=== PATIENT | female | born 1985 | race Two or more races ===

== ENCOUNTER 2025-03-05 13:03 | Inpatient (IN) | payer OTHER ==
[~2025-03-05] VITALS: Ht 157.5 cm; Wt 69.4 kg
[2025-03-05 12:08] VITALS: BP 113/65
[2025-03-05] MEDS ORDERED: MAGNESIUM SULFATE IN WATER 0.04 GM/ML IV.SOLN IV ONE (13:37)
[2025-03-05] MEDS ORDERED: BETAMETHASONE ACETATE,SOD PHOS 30 MG/5 ML ML IM SCH (14:00)
[2025-03-05] MEDS ORDERED: MAGNESIUM SULFATE IN WATER 500 ML IV SCH (14:15)
[2025-03-05] MEDS ORDERED: RINGERS SOLUTION,LACTATED 1,000 ML IV SCH (14:15)
[2025-03-05] MEDS ORDERED: PRENATA CHEWAB1 EACH PO (14:42)
[2025-03-05] MEDS ORDERED: FOLIC ACID20 MG PO (14:43)
[2025-03-05 15:05] LABS: PH,URINE 6.5 (5.0-8.0); URINE APPEARANCE Clear; URINE BILIRRUBIN Negative (NEGATIVE); URINE BLOOD Negative; URINE COLOR Yellow; URINE GLUCOSE Negative (NEGATIVE); URINE KETONE Negative (NEGATIVE); URINE LEUKOCYTE Trace; URINE NITRATE Negative; URINE PROTEIN Negative (NEGATIVE); URINE UROBILINOGEN 0.2 E.U./dl
[2025-03-05 15:08] LABS: URINE BACTERIA 1705.9 uL (0.0-1933); URINE EPITHELIAL CELLS 19.9 uL (0.0-38.8); URINE RBC 5.8 uL (0.0-20.8); URINE WBC 31.1 uL (0.0-23.2)
[2025-03-05 15:24] VITALS: BP 108/65
[2025-03-05 15:30] LABS: BASO % 0.2 % (0.1-1.2); EOS # 0.16 (0.04-0.54); EOS % 1.5 % (0.7-7.0); HEMATOCRIT 32.7 % (34.1-44.9); HEMOGLOBIN 11.3 g/dL (11.2-15.7); LYMPH # 1.39 (1.18-3.74); MEAN CORPUSCULAR HEMOGLOBIN 28.9 pg (25.6-32.2); MONO # 0.56 (0.24-0.82); MONO % 5.2 % (4.7-12.5); NEUT # 8.55 (1.56-6.13); NEUT % 79.6 % (34.0-71.1); PLATELET COUNT 219 K/uL (163-369); RED BLOOD COUNT 3.91 M/uL (3.93-5.22); RED CELL DISTRIBUTION WIDTH 12.4 % (11.6-14.4)
[2025-03-05 15:48] LABS: ALBUMIN 2.6 gm/dL (3.4-5.0); BILIRUBIN TOTAL 0.19 mg/dL (0.3-1.2); GFR 307.27; GLOBULINA 3.5 G/DL (2.4-3.5); POTASSIUM 3.88 mEq/L (3.5-5.1); TOTAL PROTEIN 6.1 gm/dL (6.4-8.2)
[2025-03-05 15:50] LABS: CREATININE SERUM 0.25 mg/dL (0.55-1.02)
[2025-03-05 15:57] LABS: INR 0.94; PARTIAL THROMBOPLASTIN TIME 26.6 SECONDS (22.0-34.0); PROTHROMBIN TIME 10.3 SECONDS (9.0-11.5)
[2025-03-05 19:31] VITALS: BP 118/69
[2025-03-05 23:05] VITALS: BP 108/64
[2025-03-06 03:02] VITALS: BP 99/61
[2025-03-06 06:20] VITALS: BP 104/63; O2SAT 98
[2025-03-06 11:51] VITALS: BP 100/63; O2SAT 98
[2025-03-06 15:24] VITALS: BP 90/58
[2025-03-06 20:15] VITALS: BP 104/65
[2025-03-06] MEDS ORDERED: NIFEDIPINE 30 MG TAB.SA.OSM PO SCH (21:00)
[2025-03-06 23:37] VITALS: BP 95/53
[2025-03-07 03:29] VITALS: BP 99/52
[2025-03-07 06:19] VITALS: BP 93/52; O2SAT 98
[2025-03-07] MEDS ORDERED: ACETAMINOPHEN 500 MG GEL..CAP PO NR (08:15)
[2025-03-07 10:52] VITALS: BP 94/53
[2025-03-07 14:06] VITALS: BP 111/71
[2025-03-07 16:03] VITALS: BP 107/68
[2025-03-08] VITALS: BP 105/64
[2025-03-08 08:00] VITALS: BP 110/68
[2025-03-08] MEDS ORDERED: TERBUTALINE SULFATE 1 MG/ML AMPUL SUBCUTANEO STA (12:59)
[2025-03-08 16:14] VITALS: BP 120/71
[2025-03-08] MEDS ORDERED: ACETAMINOPHEN 500 MG GEL..CAP PO PRN (17:00)
[2025-03-09 00:47] VITALS: BP 96/64
[2025-03-09 08:00] VITALS: BP 104/67
[2025-03-09 16:59] VITALS: BP 100/66
[2025-03-09 23:56] VITALS: BP 102/62
[2025-03-10] MEDS ORDERED: Procardia Xl 30MG TA PO (08:39)
[2025-03-10 08:45] VITALS: BP 118/73
== END 2025-03-10 13:30 | disposition home or self-care (01) | DRG 833 ==
LOC: LDR 13:03 → OB/GYN 03-07 10:05
PROVIDERS: ADMIT Obstetrics & Gynecology; ATTEND Obstetrics & Gynecology
PROC: 4A1HXCZ Monitoring of Products of Conception, Cardiac Rate, External Approach (ICD-10-PCS; principal; 2025-03-05)
PROC: BY4FZZZ Ultrasonography of Third Trimester, Single Fetus (ICD-10-PCS; 2025-03-06)
PROC: BU4CZZZ Ultrasonography of Uterus and Ovaries (ICD-10-PCS; 2025-03-06)
DX: O47.03 False labor before 37 completed weeks of gestation, third trimester (principal); O26.843 Uterine size-date discrepancy, third trimester; O36.8130 Decreased fetal movements, third trimester, not applicable or unspecified; Z3A.28 28 weeks gestation of pregnancy

== ENCOUNTER 2025-05-10 15:38 | Outpatient (CLI) | payer OTHER ==
[~2025-05-10 15:38] MED LIST: FOLIC ACID20 MG PO; PRENATA CHEWAB1 EACH PO; Procardia Xl 30MG TA PO
== END 2025-05-10 16:57 | disposition home or self-care (01) ==
LOC: NST 15:38
PROVIDERS: ATTEND Obstetrics & Gynecology
DX: Z34.83 Encounter for supervision of other normal pregnancy, third trimester (principal)

== ENCOUNTER 2025-05-11 00:30 | Outpatient (CLI) | payer OTHER ==
[2025-05-11 00:02] VITALS: BP 125/72
[2025-05-11 05:25] VITALS: BP 129/78
== END 2025-05-11 04:44 | disposition home or self-care (01) ==
LOC: OBS/DEL 00:30
PROVIDERS: ATTEND Obstetrics & Gynecology
DX: O36.8130 Decreased fetal movements, third trimester, not applicable or unspecified (principal); Z3A.37 37 weeks gestation of pregnancy

== ENCOUNTER 2025-05-11 17:52 | Outpatient (CLI) | payer OTHER ==
[2025-05-11 17:32] VITALS: BP 117/70
[2025-05-11 20:20] VITALS: BP 120/73
[2025-05-11 23:32] VITALS: BP 120/69
[2025-05-12 04:36] VITALS: BP 121/75; O2SAT 100
[2025-05-12 07:28] VITALS: BP 139/81
[2025-05-12 10:28] VITALS: BP 139/81
== END 2025-05-12 10:29 | disposition home or self-care (01) ==
LOC: OBS/DEL 17:52
PROVIDERS: ATTEND Obstetrics & Gynecology
DX: O26.893 Other specified pregnancy related conditions, third trimester (principal); Z3A.37 37 weeks gestation of pregnancy

== ENCOUNTER 2025-05-17 10:49 | Inpatient (IN) | payer OTHER ==
[~2025-05-17] VITALS: Ht 157.5 cm; Wt 74.8 kg
[2025-05-17 11:00] VITALS: BP 140/69
[2025-05-17 11:40] LABS: BASO % 0.2 % (0.1-1.2); EOS # 0.07 (0.04-0.54); EOS % 0.6 % (0.7-7.0); LYMPH # 1.60 (1.18-3.74); LYMPH % 13.9 % (19.3-53.1); MEAN PLATELET VOLUME 11.20 fl (9.4-12.4); MONO # 0.68 (0.24-0.82); MONO % 5.9 % (4.7-12.5); NEUT # 9.06 (1.56-6.13); NEUT % 78.9 % (34.0-71.1); RED CELL DISTRIBUTION WIDTH 13.1 % (11.6-14.4)
[2025-05-17 12:10] LABS: INR < 0.93
[2025-05-17] MEDS ORDERED: RINGERS SOLUTION,LACTATED 1,000 ML IV SCH (13:00)
[2025-05-17] MEDS ORDERED: OXYTOCIN 20 UNITS/500ML RL PIGGYBAG IV ONE (15:19)
[2025-05-17] MEDS ORDERED: CHLORHEXIDINE GLUCONATE 120 ML BOTTLE TOP ONE (15:53)
[2025-05-17] MEDS ORDERED: ERYTHROMYCIN BASE OPHT 1GM EACH TUBE OP ONE (15:53)
[2025-05-17] MEDS ORDERED: LIDOCAINE HCL 1% 10ML VIAL ONE (15:53)
[2025-05-17] MEDS ORDERED: OXYTOCIN 20 UNITS/1000ML RL PIGGYBAG IV ONE (15:53)
[2025-05-17 15:55] VITALS: BP 155/72
[2025-05-17] MEDS ORDERED: OXYTOCIN 500 ML IV SCH (16:00)
[2025-05-17] MEDS ORDERED: CHLORHEXIDINE GLUCONATE 120 ML BOTTLE TP SCH (17:15)
[2025-05-17] MEDS ORDERED: OXYTOCIN 1,000 ML IV SCH (17:15)
[2025-05-17] MEDS ORDERED: ACETAMINOPHEN WITH CODEINE 1 UDTAB TABLET PO PRN (17:15)
[2025-05-17] MEDS ORDERED: ACETAMINOPHEN 500 MG GEL..CAP PO ONE (20:42)
[2025-05-17] MEDS ORDERED: ACETAMINOPHEN 500 MG GEL..CAP PO PRN (20:45)
[2025-05-17 21:30] VITALS: BP 112/66
[2025-05-17 23:35] VITALS: BP 132/74
[2025-05-18 03:28] VITALS: BP 103/63
[2025-05-18 07:49] VITALS: BP 131/75
[2025-05-18 11:41] VITALS: BP 117/68
[2025-05-18 12:50] VITALS: BP 121/76
[2025-05-18 17:45] VITALS: BP 120/74
[2025-05-18 23:59] VITALS: BP 120/80
[2025-05-19 08:00] VITALS: BP 133/83
[2025-05-19 17:02] VITALS: BP 117/79
== END 2025-05-19 17:14 | disposition home or self-care (01) | DRG 807 ==
LOC: LDR 10:49 → OB/GYN 05-18 10:28
PROVIDERS: ADMIT Obstetrics & Gynecology; ATTEND Obstetrics & Gynecology
PROC: 10E0XZZ Delivery of Products of Conception, External Approach (ICD-10-PCS; principal; 2025-05-17)
PROC: 0KQM0ZZ Repair Perineum Muscle, Open Approach (ICD-10-PCS; 2025-05-17)
PROC: 4A1HXCZ Monitoring of Products of Conception, Cardiac Rate, External Approach (ICD-10-PCS; 2025-05-17)
DX: O70.1 Second degree perineal laceration during delivery (principal); Z37.0 Single live birth; Z3A.38 38 weeks gestation of pregnancy